=== PATIENT | female | born 1985 | race Caucasian/White ===

== ENCOUNTER 2016-07-31 08:55 | Emergency (ER) | payer MEDICAID ==
[2016-07-31 08:55] VITALS: BMI 41.1
[2016-07-31 09:09] VITALS: BP 139/84; PULSE 85; RESP 17; TEMP 98.4; O2SAT 99
[2016-07-31] MEDS ORDERED: Tetanus/Diphtheria Toxoids 0.5 ml Syringe IM ONE ×2 (09:18→09:25)
[2016-07-31] MEDS ORDERED: Amoxicillin-Clav 875-125 mg Tab PO STA (09:18)
--- NOTE | 2016-07-31 09:21 | C.PDOC ---
History Of Present Illness 31 y/o female presents to ED who states she was bit by her cat on her right hand 2 days ago. Patient reports mild pain and redness to the area. Denies fever. Unsure of tetanus vaccine status. Time Seen by Provider: 07/31/16 09:09 Chief Complaint (Nursing): Bite History Per: Patient History/Exam Limitations: no limitations Onset/Duration Of Symptoms: Days Current Symptoms Are (Timing): Still Present Location Of Injury: Right: Hand, Posterior: Hand Quality Of Symptoms: Painful. denies: Swollen, Draining Recent travel outside of the [place]: No Past Medical History Reviewed: Historical Data, Nursing Documentation, Vital Signs Vital Signs: Last Vital Signs Temp 98.4 F 07/31/16 09:07 Pulse 85 07/31/16 09:07 Resp 17 07/31/16 09:07 BP 139/84 07/31/16 09:07 Pulse Ox 99 07/31/16 09:22 - Medical History PMH: No Chronic Diseases - [facility] Procedures ARTIF RUPT MEMBRANES NEC (12/27/12) DELIVERY OF PRODUCTS OF CONCEPTION, EXTERNAL APPROACH (01/30/15) MANUAL ASSIST DELIV NEC (12/27/12) Family History: States: Unknown Family Hx - Social History Hx Tobacco Use: No Hx Alcohol Use: No Hx Substance Use: No - Immunization History Hx Tetanus Toxoid Vaccination: No Hx Influenza Vaccination: Yes Hx Pneumococcal Vaccination: No Review Of Systems Except As Marked, All Systems Reviewed And Found Negative. Constitutional: Negative for: Fever, Chills ENT: Negative for: Throat Pain Respiratory: Negative for: Cough Musculoskeletal: Negative for: Neck Pain Skin: Positive for: Other (bite chanelle, right hand) Neurological: Negative for: Weakness, Numbness Physical Exam - Physical Exam Appears: Non-toxic, No Acute Distress Skin: Warm, Dry Head: Atraumatic, Normacephalic Chest: Symmetrical Cardiovascular: Rhythm Regular Respiratory: Normal Breath Sounds, No Rales, No Rhonchi, No Wheezing Extremity: Normal ROM, No Tenderness, Capillary Refill (< 2 sec. ), No Deformity , No Swelling, Other (dorsum of thenar eminence, 2 small puncture wounds, no discharge/swelling, mild erythema) Extremity: Bilateral: Normal Color And Temperature Pulses: Left Radial: Normal, Right Radial: Normal Neurological/Psych: Oriented x3, Normal Speech, Normal Cognition ED Course And Treatment O2 Sat by Pulse Oximetry: 99 (RA) Pulse Ox Interpretation: Normal Progress Note: Treated with amoxicillin and tetanus ordered. Advised to follow up with clinic/PMD and to take medications as directed. Disposition Counseled Patient/Family Regarding: Diagnosis, Need For Followup, Rx Given - Disposition Referrals: [facility] [Outside] Disposition: HOME/ ROUTINE Disposition Time: 09:25 Condition: STABLE Additional Instructions: FOLLOW UP WITH YOUR DOCTOR/CLINIC IN 1-2 DAYS USE ANTIBIOTICS UNTIL FINISHED RETURN TO ER IF SYMPTOMS WORSEN Prescriptions: Amoxicillin/Clavulanate [Augmentin 875 MG-125 MG] 1 tab PO BID #14 tab Lactobacillus Combination No.4 [Probiotic] 1 each PO DAILY #7 capsule Instructions: Animal Bite (ED) Print Language: CONGOLESE - POA Present On Arrival: None - Clinical Impression Clinical Impression: Cat bite - Scribe Statement The provider has reviewed the documentation as recorded by the Puneet Verdin Provider Attestation: All medical record entries made by the Puneet were at my direction and personally dictated by me. I have reviewed the chart and agree that the record accurately reflects my personal performance of the history, physical exam, medical decision making, and the department course for this patient. I have also personally directed, reviewed, and agree with the discharge instructions and disposition.
[2016-07-31] MEDS ORDERED: Amoxicillin-Clav 875-125 mg Tab PO ONE (09:25)
== END 2016-07-31 09:46 | disposition home or self-care (01) ==
LOC: C.ER 08:55
DX: S61.431A Puncture wound without foreign body of right hand, initial encounter (principal); W55.01XA Bitten by cat, initial encounter; Y92.009 Unspecified place in unspecified non-institutional (private) residence as the place of occurrence of the external cause

== ENCOUNTER 2017-09-28 14:26 | Emergency (ER) | payer MEDICAID ==
[2017-09-28 14:26] VITALS: BMI 41.1
--- NOTE | 2017-09-28 15:46 | C.PDOC ---
History Of Present Illness 32 yo female LMP 06/2017 c/o vaginal spotting since last Thursday (6 days). Notes that she only notices it when she wipes after urinating. ALso notes that it has seen less today. Denies hematuria, dysuria, vaginal discharge, back pain , fever, or abdominal pain. First care visit scheduled for the end of this month. Time Seen by Provider: 09/28/17 14:57 Chief Complaint (Nursing): Female Genitourinary History Per: Patient History/Exam Limitations: no limitations Onset/Duration Of Symptoms: Days, Intermittent Episodes Current Symptoms Are (Timing): Better Past Medical History Vital Signs: Last Vital Signs Temp 98.1 F 09/28/17 17:48 Pulse 112 H 09/28/17 17:48 Resp 19 09/28/17 17:48 BP 122/81 09/28/17 17:48 Pulse Ox 98 09/28/17 17:48 - [facility] Procedures ARTIF RUPT MEMBRANES NEC (12/27/12) DELIVERY OF PRODUCTS OF CONCEPTION, EXTERNAL APPROACH (01/30/15) MANUAL ASSIST DELIV NEC (12/27/12) Family History: States: Unknown Family Hx - Social History Hx Tobacco Use: No Hx Alcohol Use: No Hx Substance Use: No - Immunization History Hx Tetanus Toxoid Vaccination: No Hx Influenza Vaccination: No Hx Pneumococcal Vaccination: No Review Of Systems Except As Marked, All Systems Reviewed And Found Negative. Genitourinary: Positive for: Vaginal Bleeding Physical Exam - Physical Exam Appears: Well, Non-toxic, No Acute Distress Skin: Normal Color, Warm, Dry Head: Atraumatic, Normacephalic Eye(s): bilateral: Normal Inspection, EOMI Nose: Normal Oral Mucosa: Moist Neck: Normal, Normal ROM, Supple Chest: Symmetrical Respiratory: No Accessory Muscle Use Gastrointestinal/Abdominal: Normal Exam, Soft, No Tenderness Back: Normal Inspection, No CVA Tenderness, No Vertebral Tenderness Extremity: Normal ROM Neurological/Psych: Oriented x3, Normal Speech ED Course And Treatment - Laboratory Results Result Diagrams: 09/28/17 16:13 09/28/17 16:13 O2 Sat by Pulse Oximetry: 100 - CT Scan/US obstetrics Other Rad Studies (CT/US): Read By Radiologist, Radiology Report Reviewed CT/US Interpretation: FINDINGS: UTERUS: Measures 11.9 x 6.5 x 3.4 cm. Normal in size and appearance. No fibroid or other mass lesion seen. ENDOMETRIUM: There is intrauterine gestational sac contains pole with CRL measures 0.6 centimeter corresponding to gestational age of 6 weeks 3 days. heart activity is noted with a heart rate is 124 BPM. CERVIX: No cervical abnormality identified. RIGHT OVARY: Measures 3.5 x 2.9 x 3.6 cm. No solid mass. Normal flow. There is complex cyst seen at the right adnexa measures 0.9 x 0.7 x 1 centimeter may represent corpus luteum cyst. LEFT OVARY: Measures 2.5 x 2.4 x 3.2 cm. No solid mass. Normal flow. There is 1.5 x 1.55 x 1.4 centimeters cyst at the left ovary. FREE FLUID: No significant free fluid noted. OTHER FINDINGS: None. IMPRESSION: Small intrauterine gestational sac contains pole with heart activity. No yolk sac is noted. Close follow-up reassessment is suggested. Bilateral ovarian cyst. Progress Note: PT declined pain medication. Discussed with pt results and copies given. Pt was instructed to follow up with OB/ER in 2-3 days for re- evaluation. Disposition - Disposition Disposition Time: 16:36 Condition: STABLE Additional Instructions: Follow up with your OB/ ER in 2-3 days for re-evaluation. Beta HCG 1700. Instructions: Bleeding With (DC) Forms: [employer] (Lithuanian) - Clinical Impression Clinical Impression: First trimester bleeding
[2017-09-28 16:13] LABS: HCG,QUALITATIVE URINE POSITIVE (NEGATIVE); SQUAMOUS EPITHIAL < 1 /hpf (0-5); URINE BACTERIA RARE (<OCC); URINE BILIRUBIN NEGATIVE (NEGATIVE); URINE BLOOD 2+ (NEGATIVE); URINE CLARITY Clear (Clear); URINE COLOR Colorless (YELLOW); URINE GLUCOSE (UA) NORMAL (Normal); URINE LEUKOCYTE ESTERASE NEG Leu/uL (Negative); URINE PROTEIN NEGATIVE (NEGATIVE); URINE UROBILINOGEN NORMAL mg/dL (0.2-1.0)
[2017-09-28 16:21] LABS: BASO # 0.1 K/uL (0.0-0.2); BASO % 0.7 % (0.0-2.0); EOS # 0.2 K/uL (0.0-0.7); EOS % 1.6 % (0.0-4.0); HEMOGLOBIN 11.9 g/dL (11.0-16.0); LYMPH # 1.3 K/uL (1.0-4.3); LYMPH % 14.2 % (20.0-40.0); MEAN CELL VOLUME 82.9 fL (81.0-99.0); MEAN CORPUSCULAR HEMOGLOBIN 27.9 pg (27.0-31.0); MEAN CORPUSCULAR HGB CONC 33.7 g/dL (33.0-37.0); MEAN PLATELET VOLUME 9.3 fL (7.2-11.7); MONO # 0.5 K/uL (0.0-0.8); MONO % 4.9 % (0.0-10.0); NEUT # 7.4 K/uL (1.8-7.0); NEUT % 78.6 % (50.0-75.0); NRBC % 0.1 % (0.0-2.0); RBC 4.26 Mil/uL (3.80-5.20); RED CELL DISTRIBUTION WIDTH 14.8 % (11.5-14.5); WHITE BLOOD COUNT 9.5 K/uL (4.8-10.8)
[2017-09-28 16:32] LABS: ALB/GLOB RATIO 1.4 (1.0-2.1); ALBUMIN 4.3 g/dL (3.5-5.0); ALT/SGPT 22 U/L (9-52); AST/SGOT 16 U/L (14-36); BLOOD UREA NITROGEN 8 mg/dL (7-17); CALCIUM 9.8 mg/dl (8.6-10.4); GFR AFRICAN-AMERICAN > 60; GFR NON-AFRICAN AMERICAN > 60
[2017-09-28 18:02] VITALS: BP 122/81; PULSE 112; RESP 19; TEMP 98.1
--- NOTE | 2017-09-28 18:10 | US ---
Date of service: 09/28/2017 HISTORY: bleeding COMPARISON: None available. TECHNIQUE: Transabdominal and endovaginal ultrasound examination of the pelvis was obtained. FINDINGS: UTERUS: Measures 11.9 x 6.5 x 3.4 cm. Normal in size and appearance. No fibroid or other mass lesion seen. ENDOMETRIUM: There is intrauterine gestational sac contains pole with CRL measures 0.6 centimeter corresponding to gestational age of 6 weeks 3 days. heart activity is noted with a heart rate is 124 BPM. CERVIX: No cervical abnormality identified. RIGHT OVARY: Measures 3.5 x 2.9 x 3.6 cm. No solid mass. Normal flow. There is complex cyst seen at the right adnexa measures 0.9 x 0.7 x 1 centimeter may represent corpus luteum cyst. LEFT OVARY: Measures 2.5 x 2.4 x 3.2 cm. No solid mass. Normal flow. There is 1.5 x 1.55 x 1.4 centimeters cyst at the left ovary. FREE FLUID: No significant free fluid noted. OTHER FINDINGS: None. IMPRESSION: Small intrauterine gestational sac contains pole with heart activity. No yolk sac is noted. Close follow-up reassessment is suggested. Bilateral ovarian cyst.
[2017-09-28 18:16] VITALS: O2SAT 100
== END 2017-09-28 18:39 | disposition home or self-care (01) ==
LOC: C.ER 14:26
DX: O20.9 Hemorrhage in early pregnancy, unspecified (principal)

== ENCOUNTER 2017-10-11 09:54 | Emergency (ER) | payer MEDICAID ==
[2017-10-11 09:54] VITALS: BMI 41.1
[2017-10-11] MEDS ORDERED: Sodium Chloride 0.9% 500 ML IV ONE (10:26)
[2017-10-11 10:44] LABS: SQUAMOUS EPITHIAL 1 /hpf (0-5); URINE BILIRUBIN NEGATIVE (NEGATIVE); URINE BLOOD NEGATIVE (NEGATIVE); URINE CLARITY Clear (Clear); URINE COLOR Yellow (YELLOW); URINE GLUCOSE (UA) NORMAL (Normal); URINE LEUKOCYTE ESTERASE TRACE Leu/uL (Negative); URINE PROTEIN NEGATIVE (NEGATIVE); URINE UROBILINOGEN NORMAL mg/dL (0.2-1.0)
[2017-10-11 10:45] LABS: BASO # 0.1 K/uL (0.0-0.2); BASO % 0.9 % (0.0-2.0); EOS # 0.2 K/uL (0.0-0.7); EOS % 2.7 % (0.0-4.0); HEMOGLOBIN 11.2 g/dL (11.0-16.0); LYMPH # 1.3 K/uL (1.0-4.3); LYMPH % 16.7 % (20.0-40.0); MEAN CELL VOLUME 81.5 fL (81.0-99.0); MEAN CORPUSCULAR HEMOGLOBIN 27.4 pg (27.0-31.0); MEAN CORPUSCULAR HGB CONC 33.6 g/dL (33.0-37.0); MEAN PLATELET VOLUME 9.2 fL (7.2-11.7); MONO # 0.4 K/uL (0.0-0.8); MONO % 5.5 % (0.0-10.0); NEUT % 74.2 % (50.0-75.0); RBC 4.08 Mil/uL (3.80-5.20); RED CELL DISTRIBUTION WIDTH 14.3 % (11.5-14.5); WHITE BLOOD COUNT 8.1 K/uL (4.8-10.8)
[2017-10-11 11:06] LABS: BARBITURATES, UR NEGATIVE (NEGATIVE); BENZODIAZEPINES, UR NEGATIVE (NEGATIVE); OPIATES, UR NEGATIVE (NEGATIVE); PHENCYCLIDINE, UR NEGATIVE (NEGATIVE)
[2017-10-11 11:08] LABS: ALB/GLOB RATIO 1.2 (1.0-2.1); ALBUMIN 4.1 g/dL (3.5-5.0); ALT/SGPT 20 U/L (9-52); AST/SGOT 20 U/L (14-36); BLOOD UREA NITROGEN 9 mg/dL (7-17); CALCIUM 9.6 mg/dl (8.6-10.4); GFR NON-AFRICAN AMERICAN > 60
--- NOTE | 2017-10-11 11:21 | C.PDOC ---
History Of Present Illness 32 year old female presents to the emergency department with complaints of left- sided sharp chest pain radiating down to her bilateral arms. Patient states that she had a miscarriage at home on 10-03-17, and states that the pain began afterwards. She states that she was approximately seven weeks , she is . Time Seen by Provider: 10/11/17 09:58 Chief Complaint (Nursing): Chest Pain History Per: Patient History/Exam Limitations: no limitations Onset/Duration Of Symptoms: Days (8) Current Symptoms Are (Timing): Still Present Quality: "Pain" Past Medical History Reviewed: Historical Data, Nursing Documentation, Vital Signs Vital Signs: Last Vital Signs Temp 98.3 F 10/11/17 10:10 Pulse 98 H 10/11/17 10:10 Resp 20 10/11/17 10:10 BP 148/92 H 10/11/17 10:10 Pulse Ox 99 10/11/17 11:23 - Medical History PMH: No Chronic Diseases Surgical History: No Surg Hx - [facility] Procedures ARTIF RUPT MEMBRANES NEC (12/27/12) DELIVERY OF PRODUCTS OF CONCEPTION, EXTERNAL APPROACH (01/30/15) MANUAL ASSIST DELIV NEC (12/27/12) Family History: States: No Known Family Hx - Social History Hx Tobacco Use: No Hx Alcohol Use: No Hx Substance Use: No - Immunization History Hx Tetanus Toxoid Vaccination: No Hx Influenza Vaccination: No Hx Pneumococcal Vaccination: No Review Of Systems Except As Marked, All Systems Reviewed And Found Negative. Cardiovascular: Positive for: Chest Pain Musculoskeletal: Positive for: Arm Pain (bilateral) Physical Exam - Physical Exam Appears: Non-toxic, In Acute Distress (anxious), Other (flat affect) Skin: Warm, Dry Head: Atraumatic, Normacephalic Eye(s): bilateral: Normal Inspection Neck: Normal, Supple Chest: Symmetrical Cardiovascular: Rhythm Regular, No Murmur Respiratory: Normal Breath Sounds, No Rales, No Rhonchi, No Wheezing Gastrointestinal/Abdominal: Normal Exam, Soft, No Tenderness, No Guarding, No Rebound Extremity: Normal ROM, No Tenderness (bilateral legs), No Calf Tenderness, No Swelling (legs) Neurological/Psych: Oriented x3, Normal Speech, Normal Cognition ED Course And Treatment - Laboratory Results Result Diagrams: 10/11/17 10:37 10/11/17 10:37 ECG Rhythm: Sinus Rhythm (91), Nonspecific Changes ECG Interpretation: Normal Rate From EC O2 Sat by Pulse Oximetry: 99 (RA) Pulse Ox Interpretation: Normal Progress Note: Plan: Bloodwork. Ativan. CXR. IV Fluids. Patient will be re- assessed after treatment. Disposition Counseled Patient/Family Regarding: Studies Performed, Diagnosis, Need For Followup - Disposition Referrals: Lefty Tellez MD [Staff Provider] - Disposition: HOME/ ROUTINE Disposition Time: 12:25 Condition: STABLE Additional Instructions: FOLLOW UP WITH DR TELLEZ IN 1-2 DAYS RETURN TO ER IF YOU HAVE ANY CONCERNING SYMPTOMS Instructions: Stress, Chest Pain That Is Not Caused by the Heart (DC) Forms: [employer] (Macedonian) Print Language: UZBEK - POA Present On Arrival: None - Clinical Impression Clinical Impression: Stress reaction, Chest pain, non-cardiac - Scribe Statement The provider has reviewed the documentation as recorded by the Scribe (Todd Finnegan) Provider Attestation: All medical record entries made by the Scribe were at my direction and personally dictated by me. I have reviewed the chart and agree that the record accurately reflects my personal performance of the history, physical exam, medical decision making, and the department course for this patient. I have also personally directed, reviewed, and agree with the discharge instructions and disposition.
[2017-10-11 11:25] LABS: CK-MB < 0.22 ng/mL (0.0-3.38)
[2017-10-11 12:33] VITALS: BP 136/71; PULSE 87; RESP 18; TEMP 98; O2SAT 98
--- NOTE | 2017-10-11 13:02 | RAD ---
Date of service: 10/11/2017 PROCEDURE: CHEST RADIOGRAPH, 1 VIEW HISTORY: CP COMPARISON: None available. FINDINGS: LUNGS: No acute pulmonary disease appreciated bilaterally. PLEURA: No pneumothorax or pleural fluid seen. CARDIOVASCULAR: Prominent appearing cardiac silhouette. No pulmonary vascular congestion. OSSEOUS STRUCTURES: No significant abnormalities. VISUALIZED UPPER ABDOMEN: Normal. OTHER FINDINGS: None. IMPRESSION: Prominent appearing cardiac silhouette. No pulmonary vascular congestion. No infiltrate, pleural effusion or pneumothorax bilaterally.
--- NOTE | 2017-10-13 08:56 | CARD ---
APPROVED REPORT Date of service: 10/11/2017 EKG Measurement Heart [id number] <Conclusion> Normal sinus rhythm Normal ECG
== END 2017-10-11 12:33 | disposition home or self-care (01) ==
LOC: C.ER 09:54
DX: F43.9 Reaction to severe stress, unspecified (principal); R07.89 Other chest pain
CPT/HCPCS: 71045; 80053; 80324; 80345; 80346; 80349; 80353; 80358; 80361; 81001; 82550; 82553; 83992; 84443; 84484; 84702; 85025; 93005; 96374; 99285; J2060; J7040